=== PATIENT | female | born 1945 | race Caucasian/White ===

== ENCOUNTER 2017-04-16 19:09 | Inpatient (IN) | payer MEDICARE, OTHER ==
[2017-04-16] MEDS ORDERED: Aspirin Low Dose CHEW TAB* 81 MG PO ONE (19:26)
[2017-04-16] MEDS ORDERED: NS 0.9% 1000 ML* 1,000 ML IV ONE (19:26)
--- NOTE | 2017-04-16 19:55 | RAD ---
Indication: Chest pain and shortness of breath. Comparison: February 08, [address] and January 02, 2011 chest radiograph. Technique: Upright AP 1938 hours Report: Clear lungs and pleural spaces. Negative for pneumothorax. Unchanged cardiomegaly. Unremarkable central pulmonary vasculature and mediastinal contours. Unremarkable osseous structures and soft tissue contours. IMPRESSION: Cardiomegaly without evidence for pulmonary edema. No evidence for pneumonia.
[2017-04-16 20:51] LABS: Hematocrit 33 % (35-47); Hemoglobin 11.1 g/dl (12.0-16.0); Mean Corpuscular HGB Conc 33 g/dl (31-36); Mean Corpuscular Hemoglobin 29 pg (27-31); Mean Corpuscular Volume 87 fL (80-97); Mean Platelet Volume 9 um3 (7.4-10.4); Red Blood Count 3.85 10^6/ul (4.0-5.4); Red Cell Distribution Width 14 % (10.5-15); White Blood Count 7.8 10^3/ul (3.5-10.8)
--- NOTE | 2017-04-16 20:58 | ED ---
Renan Garcia Alok, scribed for Magen Escalona MD on 04/16/17 at 2021 . HPI Chest Pain - HPI Summary HPI Summary: 72F presents to the ED with chest tightness on and off since 2 days ago. Her CP is intermittent lasting 15-20 minutes at a time and radiates to the jaw and shoulders. This CP is accompanied by SOB both on exertion and at rest. Pt took an aspirin [employer] and was given NTG by EMS [facility]. Pt denies back pain. PMHX includes DM and arthritis. PSHx includes cholecystectomy. - History of Current Complaint Chief Complaint: EDChestPainROMI Time Seen by Provider: 04/16/17 19:35 Hx Obtained From: Patient Onset/Duration: Started Days Ago, Atraumatic, Still Present Timing: Intermittent, Lasting Minutes Initial Severity: Moderate Current Severity: Moderate Pain Intensity: 6 Pain Scale Used: 0-10 Numeric Chest Pain Radiates: Yes Chest Pain Radiates To:: Shoulder, Jaw Character: Tightness Aggravating Factor(s): Nothing Alleviating Factor(s): NTG 123 Associated Signs and Symptoms: Positive: Chest Pain, Shortness of Breath. Negative: Back Pain - Allergy/Home Medications Allergies/Adverse Reactions: Allergies Allergy/AdvReac Type Severity Reaction Status Date / Time Codeine Allergy Severe GI Upset Verified 04/16/17 19:37 Acetaminophen Allergy GI Upset Verified 04/16/17 19:37 [From Oxycodone W/Acetaminophen] Oxycodone Allergy GI Upset Verified 04/16/17 19:37 [From Oxycodone W/Acetaminophen] Prednisone Allergy See Comment Verified 04/16/17 19:37 PMH/Surg Hx/FS Hx/Imm Hx Endocrine/Hematology History: Reports: Hx Thyroid Disease History: Reports: Hx Renal Disease - HX OF RENAL STONES - Surgical History Surgery Procedure, Year, and Place: ARTHROSCOPIC KNEE SURG, HYSTERECTOMY, CHOLECYSTECTOMY, CATARACT SURGERY - Immunization History Date of Tetanus Vaccine: less than 10 years Date of Influenza Vaccine: none Infectious Disease History: No Infectious Disease History: Denies: Traveled Outside the [place] in Last 30 Days - Family History Known Family History: Positive: Cardiac Disease - Social History Occupation: Retired Alcohol Use: Rare Substance Use Type: Reports: None Smoking Status (MU): Never Smoked Tobacco Review of Systems Negative: Fever Positive: Chest Pain Positive: Shortness Of Breath Negative: Other - back pain All Other Systems Reviewed And Are Negative: Yes Physical Exam - Summary Physical Exam Summary: The patient is well-nourished in no acute distress and in no acute pain. The skin is warm and dry and skin color reflects adequate perfusion. HEENT: The head is normocephalic and atraumatic. The pupils are equal and reactive. The conjunctivae are clear and without drainage. Nares are patent and without drainage. Mouth reveals moist mucous membranes and the throat is without erythema and exudate. The external ears are intact. The ear canals are patent and without drainage. The tympanic membranes are intact. Neck is supple with full range of motion and non-tender. There are no carotid bruits. There is no neck vein distension. Respiratory: Positive reproducible chest pain. Lungs are clear to auscultation and breath sounds are symmetrical and equal. Cardiovascular: Hear is regular rate and rhythm. There is no murmur or rub auscultated. Right leg appears swollen compared to left. Pulses are symmetrical and equal. Abdomen: The abdomen is obese, soft and non-tender. There are normal bowel sounds heard in all four quadrants and there is no organomegaly palpated. Musculoskeletal: There is no back pain noted. Extremities are non-tender with full range of motion. There is good capillary refill. Right leg appears swollen compared to left. Neurological: Patient is alert and oriented to person, place and time. The patient has symmetrical motor strength in all four extremities. Cranial nerves are grossly intact. Deep tendon reflexes are symmetrical and equal in all four extremities. Psychiatric: The patient has an appropriate affect and does not exhibit any anxiety or depression. Triage Information Reviewed: Yes Vital Signs On Initial Exam: Initial Vitals Temp Pulse Resp BP Pulse Ox 97.7 F 82 19 162/68 95 04/16/17 19:23 04/16/17 19:23 04/16/17 19:23 04/16/17 19:23 04/16/17 19:23 Vital Signs Reviewed: Yes - Mesfin Coma Scale Coma Scale Total: 15 Diagnostics - Vital Signs Vital Signs Temp Pulse Resp BP Pulse Ox 04/16/17 19:30 97.7 F 78 21 159/73 96 04/16/17 19:23 97.7 F 82 19 162/68 95 - Laboratory Lab Results: Lab Results 04/16/17 Range/Units 20:44 WBC 7.8 (3.5-10.8) 10^3/ul RBC 3.85 L (4.0-5.4) 10^6/ul Hgb 11.1 L (12.0-16.0) g/dl Hct 33 L (35-47) % MCV 87 (80-97) fL MCH 29 (27-31) pg MCHC 33 (31-36) g/dl RDW 14 (10.5-15) % Plt Count 151 (150-450) 10^3/ul MPV 9 (7.4-10.4) um3 Neut % (Auto) 67.5 (38-83) % Lymph % (Auto) 16.2 L (25-47) % Baca % (Auto) 6.4 (1-9) % Eos % (Auto) 9.3 H (0-6) % Baso % (Auto) 0.6 (0-2) % Absolute Neuts (auto) 5.3 (1.5-7.7) 10^3/ul Absolute Lymphs (auto) 1.3 (1.0-4.8) 10^3/ul Absolute Monos (auto) 0.5 (0-0.8) 10^3/ul Absolute Eos (auto) 0.7 H (0-0.6) 10^3/ul Absolute Basos (auto) 0 (0-0.2) 10^3/ul Absolute Nucleated RBC 0 10^3/ul Nucleated RBC % 0 Result Diagrams: 04/16/17 20:44 Lab Statement: Any lab studies that have been ordered have been reviewed, and results considered in the medical decision making process. - Radiology CXR Xray Interpretation: Positive (See Comments) - IMPRESSION: Cardiomegaly without evidence for pulmonary edema. No evidence for pneumonia. Radiology Interpretation Completed By: Radiologist - EKG 1929 Cardiac Rate: NL - 78 bpm EKG Rhythm: Sinus Rhythm ST Segment: Non-Specific - changes EKG Interpretation: Poor R-wave progression 2028 Cardiac Rate: NL - 65 bpm EKG Rhythm: Sinus Rhythm EKG Interpretation: Poor R-waves progression. Left Docena deviation. No STEMI Chest Pain Course/Dx - Chest Pain Differential Diagnosis/HQI/PQRI: Acute PR, Chest Wall, GI Disease, Lower Respiratory Infection - Diagnoses Provider Diagnoses: Chest pain - Provider Notifications Discussed Care Of Patient With: Morgan Kingsley - Will admit pt to [facility] Time Discussed With Above Provider: 20:54 Discharge - Discharge Plan Condition: Stable Disposition: ADMITTED TO [facility] Referrals: Chantale Nino MD [Primary Care Provider] - The documentation as recorded by the Renan minor Alok accurately reflects the service I personally performed and the decisions made by me, Magen Escalona MD.
[2017-04-16 21:08] LABS: Albumin 3.5 g/dL (3.2-5.2); BUN/Creatinine Ratio 17.1 (8-20); Calcium 8.9 mg/dL (8.6-10.3); EGFR African American 47.7 (>60); EGFR Non-African American 37.1 (>60); Globulin 2.5 g/dL (2-4); Potassium 4.3 mmol/L (3.5-5.0); Total Bilirubin 0.4 mg/dL (0.2-1.0)
[2017-04-16] MEDS ORDERED: Acetaminophen TAB* 325 MG PO PRN (21:13)
[2017-04-16] MEDS ORDERED: Ondansetron INJ* 2 MG/ML VIAL IV PRN (21:13)
[2017-04-16] MEDS ORDERED: Dextrose 50% Syringe 50 ML* 25 GM/50 ML SYRINGE IV PUSH PRN (21:13)
[2017-04-16] MEDS: Heparin VIAL(*) 5000 UNITS/ML VIAL (FIVE THOUSAND) SUBCUT SCH (23:08)
[2017-04-17 03:22] LABS: Hematocrit 33 % (35-47); Hemoglobin 10.7 g/dl (12.0-16.0); Mean Corpuscular HGB Conc 33 g/dl (31-36); Mean Corpuscular Hemoglobin 29 pg (27-31); Mean Corpuscular Volume 87 fL (80-97); Mean Platelet Volume 8 um3 (7.4-10.4); Red Blood Count 3.73 10^6/ul (4.0-5.4); Red Cell Distribution Width 14 % (10.5-15)
[2017-04-17 03:36] LABS: BUN/Creatinine Ratio 16.9 (8-20); Calcium 8.7 mg/dL (8.6-10.3); EGFR African American 46.9 (>60); EGFR Non-African American 36.5 (>60); HDL Cholesterol 33.2 mg/dL
[2017-04-17] MEDS: Heparin VIAL(*) 5000 UNITS/ML VIAL (FIVE THOUSAND) SUBCUT SCH ×3 (05:36→21:53)
[2017-04-17] MEDS ORDERED: Levothyroxine TAB* 100 MCG TAB PO SCH (06:00)
[2017-04-17] MEDS ORDERED: Levothyroxine TAB* 75 MCG TAB PO SCH (06:00)
[2017-04-17] MEDS: Allopurinol TAB* 100 MG PO SCH (08:32)
[2017-04-17] MEDS: Lisinopril TAB* 10 MG PO SCH (08:32)
[2017-04-17] MEDS: Famotidine TAB* 20 MG PO SCH (08:32)
[2017-04-17] MEDS: Aspirin EC Low Dose* 81 MG TAB.EC PO SCH (08:32)
[2017-04-17] MEDS: Insulin LISPRO* 1 UNITS UNIT SUBCUT SCH ×3 (08:33→16:56)
--- NOTE | 2017-04-17 10:37 | PN ---
Subjective Date of Service: 04/17/17 Interval History: This is a 72 yo female with NIDDM, hypothyroidism, HTN, CKD and GERD who presented with c/o chest pressure. Patient has no known h/o CAD. She has been having escalating symptoms for the last several days to weeks. No changes to EKG or elevated troponin Patient reports that she continues to have intermittent symptoms with exertion and at rest. Mostly limited to upper chest, occasional radiation to jaw. No additional SOB. Objective Active Medications: Acetaminophen (Tylenol Tab*) 650 mg PO Q4H PRN PRN Reason: FEVER/PAIN Allopurinol (Zyloprim Tab*) 100 mg PO DAILY [facility] Last Admin: 04/17/17 08:32 Dose: 100 mg Aspirin (Aspirin Ec Low Dose*) 81 mg PO DAILY [facility] Last Admin: 04/17/17 08:32 Dose: 81 mg Dextrose (D50w Syringe 50 Ml*) 12.5 gm IV PUSH .FOR FS < 60 - SS PRN PRN Reason: FS < 60 Famotidine (Pepcid Tab*) 20 mg PO DAILY [facility] Last Admin: 04/17/17 08:32 Dose: 20 mg Heparin Sodium (Porcine) (Heparin Vial(*)) 5,000 units SUBCUT Q8HR [facility] Last Admin: 04/17/17 05:36 Dose: 5,000 units Insulin Human Lispro (Humalog*) 0 units SUBCUT AC [facility] PRN Reason: Protocol Last Admin: 04/17/17 08:33 Dose: 2 units Levothyroxine Sodium (Synthroid Tab*) 75 mcg PO 0600 [facility] Last Admin: 04/17/17 05:36 Dose: 75 mcg Levothyroxine Sodium (Synthroid Tab*) 100 mcg PO 0600 [facility] Last Admin: 04/17/17 05:35 Dose: 100 mcg Lisinopril (Prinivil Tab*) 20 mg PO DAILY [facility] Last Admin: 04/17/17 08:32 Dose: 20 mg Ondansetron HCl (Zofran Inj*) 4 mg IV Q6H PRN PRN Reason: NAUSEA Vital Signs: Temp Pulse Resp BP Pulse Ox 97.8 F 61 16 139/57 96 04/17/17 08:15 04/17/17 08:15 04/17/17 08:15 04/17/17 08:15 04/17/17 08:15 Oxygen Devices in Use Now: None Appearance: Well appearing elderly female in NAD Respiratory: Symmetrical Chest Expansion and Respiratory Effort, Clear to Auscultation Cardiovascular: NL Sounds; No Murmurs; No JVD, RRR Abdominal: NL Sounds; No Tenderness; No Distention Extremities: - - trace LE edema bilaterally Neurological: Alert and Oriented x 3 Result Diagrams: 04/17/17 03:14 04/17/17 03:14 Additional Lab and Data: Laboratory Tests 04/16/17 04/17/17 04/17/17 20:44 00:08 03:13 Troponin I 0.00 0.01 0.01 Diagnostic Imaging: EKG - NSR Assess/Plan/Problems-Billing Assessment: This is a 72 yo female with NIDDM, GERD, hypothyroidism, HTN, CKD who presented with c/o chest heaviness. - Patient Problems (1) Chest pain Comment: No evidence of ACS Multiple CVD risk factors Will plan to keep for stress testing Wednesday ASA and statin started, no BB as HR is average mid 60s (2) Diabetes Comment: NIDDM, managed with metformin as outpt HgbA1c 7.8% (3) Hypothyroidism Comment: Cont levothyroxine Check TSH/free T4 (4) HTN (hypertension) Comment: Normotensive Cont home antihypertensives (5) CKD (chronic kidney disease) Comment: Stage III Stable (6) Full code status (7) DVT prophylaxis Comment: SQ heparin Status and Disposition: Transition to inpatient status. Plan for stress testing Wednesday
[2017-04-17 12:35] LABS: TSH (Thyroid Stimulating Horm) 0.26 mcIU/mL (0.34-5.60)
[2017-04-17 12:42] LABS: Free T4 1.47 ng/dL (0.61-1.12)
--- NOTE | 2017-04-17 13:51 | HP ---
CC: Dr. Nino* HISTORY AND PHYSICAL: DATE OF ADMISSION: 04/16/17 PRIMARY CARE PROVIDER: Dr. Nino. ATTENDING PHYSICIAN WHILE IN THE HISTORY: Morgan Kingsley MD* (report is being dictated by Kai Blum NP). CHIEF COMPLAINT: Chest pain. HISTORY OF PRESENT ILLNESS: Ms. Linares is a 72-year-old female patient who carries a history of diabetes, GERD, hypothyroidism, hypertension, and arthritis. She comes in to the ER today stating that on Wednesday, she went to visit her family in [place], she had to sleep on the bed. She noticed she woke up in the middle of the night then into Wednesday, and started having palpitations and since then now she has been having chest heaviness off and on with different duration and frequency. However, she has noticed in the last 24 hours that frequency has increased and she describes it as a pressure in the left chest up into the jaw with associated nausea at times and it does come on with exertion and there is also sometimes associated shortness of breath. She was concerned because of the symptoms and frequency was increasing. She was concerned that may be this could be related to heart, so she came into the hospital today. There has been no reports of abdominal pain or any nausea or vomiting. No fevers, chills. No recent illnesses. She denied having any loss of consciousness. No seizures and there has been no abdominal pain. She came in to the ER and was evaluated. Because of her story and of her risk factors, we were asked to evaluate for admission. PAST MEDICAL HISTORY: Significant for: 1. Diabetes. 2. GERD. 3. Hypothyroidism. 4. Hypertension. 5. Arthritis. PAST SURGICAL HISTORY: 1. The patient had left knee arthroscopy. 2. Cardiac catheterization. HOME MEDICATIONS: According to the list that she provided to me include: 1. Zantac 300 mg p.o. daily. 2. Allopurinol 100 mg p.o. daily. 3. Glucophage 500 mg p.o. b.i.d. 4. Lisinopril/hydrochlorothiazide 1 tablet p.o. daily. 5. Synthroid 125 mcg p.o. daily. ALLERGIES TO MEDICATIONS: Include CODEINE, OXYCODONE, and PREDNISONE. FAMILY HISTORY: Both her mother and father had MIs. SOCIAL HISTORY: She is a former smoker. She does not drink alcohol. She lives alone. Surrogate decision maker is her son. REVIEW OF SYSTEMS: There is no documented fever. She denied having any significant weight change. There was no double vision. No ear discharge. There was no rhinorrhea, no sore throat, no thyroid enlargement. Denied having any chest pain. Currently denied having any abdominal pain. There was shortness of breath when having the chest pain but none now. She denied having any loss of consciousness. No seizures, no pruritus and no skin ulceration. Review of 14 systems completed, all others negative. PHYSICAL EXAMINATION GENERAL: At this time, Ms. Linares is a 72-year-old female patient. She does not appear to be in any acute distress. She is awake. She is alert. She is oriented x3. VITAL SIGNS: Blood pressure 133/66, pulse 71, respirations 20, O2 sat 95% and temperature 97.7. HEENT: Head is atraumatic and normocephalic. Eyes: EOMs are intact. Sclerae are anicteric, not pale. Throat: Oral mucosa appears to be moist. No oropharyngeal erythema. NECK: Supple. LUNGS: Clear to auscultation bilaterally. No wheezes, rales, or rhonchi. HEART: Sounds S1, S2. Regular rate and rhythm. No murmurs, rubs, or gallops. ABDOMEN: Soft, flat, nontender. Bowel sounds present. EXTREMITIES: Pulses were 2+ throughout. She is able to move all 4 extremities with 5/5 strength. NEUROLOGIC: The patient is awake, alert, and oriented x3. Events Director were equal. No gross focal deficits. SKIN: Grossly intact. DIAGNOSTIC STUDIES/LAB DATA: Labs today revealed WBC 7.8, RBC of 3.85, hemoglobin 11.1, hematocrit 33, and platelet count of 151. Sodium is 137, potassium 4.3, chloride of 106, bicarb 24, BUN 24, creatinine 1.40, glucose 151 , lactate 2.5, calcium 8.9. Total bili 0.4, AST 18, ALT 16. Troponin 0. BNP 20. Albumin normal. She did have an EKG obtained today, which revealed normal sinus rhythm, rate of 65. No ST elevations or T-wave inversions were noted. She had a chest x-ray obtained today as well, which revealed cardiomegaly without evidence of pulmonary edema. No evidence of pneumonia. Old medical records were reviewed. ASSESSMENT AND PLAN: Ms. Linares is a 72-year-old female patient coming in to the ER today with complaints of chest pain. She will be admitted under observation status for: 1. Chest pain. Her story is concerning for angina. She has been having intermittent chest pain and the frequency has been increasing along with duration at times and she also says the pain does come on with exertion and she has associated shortness of breath and it radiates into her jaw and she has significant risk factors. At this point, I am going to go ahead and cycle her troponins. If they remained flat and that is reassuring, however, I still think with her story, she needs a stress test sooner rather than later. So I do think that it is warranted to keep this patient until Wednesday to do a stress test. I am going to go ahead and continue her on an aspirin. If her troponins do elevate, then I would certainly recommend Cardiology input, heparin drip and block blockers. I am checking lipid panel, A1c in the morning. We will cycle the troponins, place her on telemetry and will continue to follow her. 2. Diabetes. She will be on lispro sliding scale. 3. Hypothyroidism. Continue Synthroid. 4. Hypertension. Continue lisinopril. 5. Gastroesophageal reflux disease. Continue PPI therapy. 6. Deep vein thrombosis prophylaxis. She will be placed on heparin subcu. 7. Code status. Full code. 8. Fluids, electrolytes, and nutrition. She can have a heart healthy diet. TIME SPENT: On the admission 60 minutes. Greater than half the time spent face -to- face with the patient obtaining my history and physical; other half of the time was spent going over the plan of care with the patient and implementing the plan of care. I did discuss the plan of care with my attending, Dr. Kingsley, he is in agreement. KAI BLUM, BENITEZ [id number]/CPS #: [id number] [email or web address]
[2017-04-17] MEDS: Atorvastatin* 40 MG TAB PO SCH (16:56)
[2017-04-18] MEDS: Levothyroxine TAB* 150 MCG TAB PO SCH (04:58)
[2017-04-18] MEDS: Heparin VIAL(*) 5000 UNITS/ML VIAL (FIVE THOUSAND) SUBCUT SCH ×3 (04:58→21:16)
[2017-04-18] MEDS: Lisinopril TAB* 10 MG PO SCH (08:33)
[2017-04-18] MEDS: Allopurinol TAB* 100 MG PO SCH (08:33)
[2017-04-18] MEDS: Aspirin EC Low Dose* 81 MG TAB.EC PO SCH (08:33)
[2017-04-18] MEDS: Insulin LISPRO* 1 UNITS UNIT SUBCUT SCH ×3 (08:33→17:13)
[2017-04-18] MEDS: Famotidine TAB* 20 MG PO SCH (08:33)
--- NOTE | 2017-04-18 14:19 | PN ---
Subjective Date of Service: 04/18/17 Interval History: Patient continues to have occasional complaints of CP that last several seconds to minutes. No assoc SOB, abd pain, n/v. Objective Active Medications: Acetaminophen (Tylenol Tab*) 650 mg PO Q4H PRN PRN Reason: FEVER/PAIN Allopurinol (Zyloprim Tab*) 100 mg PO DAILY [facility] Last Admin: 04/18/17 08:33 Dose: 100 mg Aspirin (Aspirin Ec Low Dose*) 81 mg PO DAILY [facility] Last Admin: 04/18/17 08:33 Dose: 81 mg Atorvastatin Calcium (Lipitor*) 40 mg PO 1700 [facility] Last Admin: 04/17/17 16:56 Dose: 40 mg Dextrose (D50w Syringe 50 Ml*) 12.5 gm IV PUSH .FOR FS < 60 - SS PRN PRN Reason: FS < 60 Famotidine (Pepcid Tab*) 20 mg PO DAILY [facility] Last Admin: 04/18/17 08:33 Dose: 20 mg Heparin Sodium (Porcine) (Heparin Vial(*)) 5,000 units SUBCUT Q8HR [facility] Last Admin: 04/18/17 12:55 Dose: 5,000 units Insulin Human Lispro (Humalog*) 0 units SUBCUT AC [facility] PRN Reason: Protocol Last Admin: 04/18/17 12:55 Dose: 6 units Levothyroxine Sodium (Synthroid Tab*) 150 mcg PO 0600 [facility] Last Admin: 04/18/17 04:58 Dose: 150 mcg Lisinopril (Prinivil Tab*) 20 mg PO DAILY [facility] Last Admin: 04/18/17 08:33 Dose: 20 mg Ondansetron HCl (Zofran Inj*) 4 mg IV Q6H PRN PRN Reason: NAUSEA Vital Signs: Temp Pulse Resp BP Pulse Ox 99.2 F 70 16 138/58 97 04/18/17 11:55 04/18/17 11:55 04/18/17 11:55 04/18/17 11:55 04/18/17 11:55 Oxygen Devices in Use Now: None Appearance: Well appearing in NAD Respiratory: Symmetrical Chest Expansion and Respiratory Effort, Clear to Auscultation Cardiovascular: NL Sounds; No Murmurs; No JVD, RRR Abdominal: NL Sounds; No Tenderness; No Distention Extremities: No Edema Skin: No Rash or Ulcers Neurological: Alert and Oriented x 3 Result Diagrams: 04/17/17 03:14 04/17/17 03:14 Additional Lab and Data: Laboratory Tests 04/16/17 04/17/17 04/17/17 20:44 00:08 03:13 Troponin I 0.00 0.01 0.01 Diagnostic Imaging: EKG - NSR Assess/Plan/Problems-Billing Assessment: This is a 72 yo female with NIDDM, GERD, hypothyroidism, HTN, CKD who presented with c/o chest heaviness. - Patient Problems (1) Chest pain Comment: No evidence of ACS Multiple CVD risk factors Will plan to keep for stress testing tomorrow ASA and statin started, no BB as HR is average mid 60s (2) Diabetes Comment: NIDDM, managed with metformin as outpt HgbA1c 7.8% (3) Hypothyroidism Comment: Cont levothyroxine Check TSH/free T4 (4) HTN (hypertension) Comment: Normotensive Cont home antihypertensives (5) CKD (chronic kidney disease) Comment: Stage III Stable (6) Full code status (7) DVT prophylaxis Comment: SQ heparin Status and Disposition: Inpatient. Waiting for stress test tomorrow
[2017-04-18] MEDS: Atorvastatin* 40 MG TAB PO SCH (17:13)
[2017-04-19] MEDS: Levothyroxine TAB* 150 MCG TAB PO SCH (05:56)
[2017-04-19] MEDS: Heparin VIAL(*) 5000 UNITS/ML VIAL (FIVE THOUSAND) SUBCUT SCH (05:57)
[2017-04-19] MEDS: Insulin LISPRO* 1 UNITS UNIT SUBCUT SCH ×2 (07:19→12:25)
--- NOTE | 2017-04-19 09:34 | RAD ---
HISTORY: Chest pain, shortness of breath, diabetes, hypertension, lipidemia, obesity, tobacco use, family history of heart disease, previous cardiac catheterization COMPARISONS: January 03, 2011 TECHNIQUE: A 1 day stress/rest myocardial perfusion study was performed, with pharmacologic stress. The stress portion was monitored by Dr. Maldonado. Gated SPECT imaging was performed, with CT-based attenuation correction DOSE: Stress: Technetium 99m tetrofosmin, 25.6 millicuries, injected at 8:22 AM on April 19, 2017 Rest: Technetium 99m tetrofosmin, 10.57 millicuries, injected at 6:20 AM on April 19, 2017 Pharmacologic agent: Lexiscan FINDINGS: CARDIAC MONITORING: No EKG criteria ischemia with stress EF: 68 % TID: 0.95 MOTION: Normal motion, with normal wall thickening. PERFUSION: There is a small focus of fixed hypoperfusion of the apex suggestive of previous infarct. There is a small to moderate region of reversible hypoperfusion of the distal anterior wall suggestive of ischemia. OTHER: None IMPRESSION: 1. SMALL TO MODERATE REVERSIBLE FOCUS OF THE DISTAL ANTERIOR WALL SUGGESTIVE OF ISCHEMIA. 2. SMALL FIXED DEFECT TOWARDS THE APEX SUGGESTIVE OF PREVIOUS INFARCT ASSESSMENT: LOW RISK. Based on imaging criteria from ACC/AHA 2002. Guideline Update for the Management of Patient's with Chronic Stable Angina, table 23. Noninvasive Risk Stratification.
--- NOTE | 2017-04-19 10:18 | PN ---
Subjective Date of Service: 04/19/17 Interval History: Patient reports no change in her symptoms overnight. She continues to have occasional chest discomfort. No abd pain, n/v. She completed stress test this am. Objective Active Medications: Acetaminophen (Tylenol Tab*) 650 mg PO Q4H PRN PRN Reason: FEVER/PAIN Allopurinol (Zyloprim Tab*) 100 mg PO DAILY [facility] Last Admin: 04/18/17 08:33 Dose: 100 mg Aspirin (Aspirin Ec Low Dose*) 81 mg PO DAILY [facility] Last Admin: 04/18/17 08:33 Dose: 81 mg Atorvastatin Calcium (Lipitor*) 40 mg PO 1700 [facility] Last Admin: 04/18/17 17:13 Dose: 40 mg Dextrose (D50w Syringe 50 Ml*) 12.5 gm IV PUSH .FOR FS < 60 - SS PRN PRN Reason: FS < 60 Famotidine (Pepcid Tab*) 20 mg PO DAILY [facility] Last Admin: 04/18/17 08:33 Dose: 20 mg Heparin Sodium (Porcine) (Heparin Vial(*)) 5,000 units SUBCUT Q8HR [facility] Last Admin: 04/19/17 05:57 Dose: 5,000 units Insulin Human Lispro (Humalog*) 0 units SUBCUT AC [facility] PRN Reason: Protocol Last Admin: 04/19/17 07:19 Dose: Not Given Levothyroxine Sodium (Synthroid Tab*) 150 mcg PO 0600 [facility] Last Admin: 04/19/17 05:56 Dose: 150 mcg Lisinopril (Prinivil Tab*) 20 mg PO DAILY [facility] Last Admin: 04/18/17 08:33 Dose: 20 mg Ondansetron HCl (Zofran Inj*) 4 mg IV Q6H PRN PRN Reason: NAUSEA Vital Signs: Temp Pulse Resp BP Pulse Ox 97.5 F 68 16 149/77 100 04/19/17 09:23 04/19/17 09:23 04/19/17 09:23 04/19/17 09:23 04/19/17 09:23 Oxygen Devices in Use Now: None Appearance: Well appearing, in NAD Respiratory: Symmetrical Chest Expansion and Respiratory Effort, Clear to Auscultation Cardiovascular: NL Sounds; No Murmurs; No JVD, RRR Abdominal: NL Sounds; No Tenderness; No Distention Extremities: No Edema Skin: No Rash or Ulcers Neurological: Alert and Oriented x 3 Result Diagrams: 04/17/17 03:14 04/17/17 03:14 Additional Lab and Data: Laboratory Tests 04/16/17 04/17/17 04/17/17 20:44 00:08 03:13 Troponin I 0.00 0.01 0.01 Diagnostic Imaging: EKG - NSR Nuc stress test - area of reversible ischemia along distal anterior wall and a fixed perfusion defect near the apex Assess/Plan/Problems-Billing Assessment: This is a 72 yo female with NIDDM, GERD, hypothyroidism, HTN, CKD who presented with c/o chest heaviness. - Patient Problems (1) Chest pain Comment: Stress test is abnl showing an area of reversible ischemia, requested cardiology consultation No evidence of ACS Multiple CVD risk factors Will plan to keep for stress testing tomorrow ASA and statin started, no BB as HR is average mid 60s (2) Diabetes Comment: NIDDM, managed with metformin as outpt HgbA1c 7.8% (3) Hypothyroidism Comment: Cont levothyroxine Mildly supressed TSH (4) HTN (hypertension) Comment: Normotensive Cont home antihypertensives (5) CKD (chronic kidney disease) Comment: Stage III Stable (6) Full code status (7) DVT prophylaxis Comment: SQ heparin Status and Disposition: Inpatient. Pending cardiology consultation
[2017-04-19] MEDS: Lisinopril TAB* 10 MG PO SCH (10:46)
[2017-04-19] MEDS: Aspirin EC Low Dose* 81 MG TAB.EC PO SCH (10:46)
[2017-04-19] MEDS: Famotidine TAB* 20 MG PO SCH (10:46)
[2017-04-19] MEDS: Allopurinol TAB* 100 MG PO SCH (10:46)
[2017-04-19 11:30] VITALS: BP 152/71
[2017-04-19] MEDS ORDERED: Regadenoson* 0.4 MG/5 ML SYRINGE ONE (12:39)
--- NOTE | 2017-04-19 13:27 | CONS ---
CC: Dr. Chantale Nino * CARDIOLOGY CONSULTATION: DATE OF CONSULT: 04/19/17 INDICATION FOR CONSULT: Chest pain. HISTORY OF PRESENT ILLNESS: The patient is a 72-year-old female with a history of diabetes, who is admitted to the hospital with chest pain. The patient states for the past week or so, she has been having intermittent chest pain that occurs at rest. The patient will say she was sitting, doing nothing and then suddenly gets the onset of chest pain, it is in the center of her chest. She describes it as a pressure in her chest. Occasionally, it radiates to her jaw. It will last just a few minutes and then resolve on its own. She says she does nothing to change anything. She denies any of these symptoms during exercise. It is not associated with meals. She denies any episodes of lightheadedness, dizziness, or syncope. The patient states that she had a cardiac catheterization 10 years ago, which was unremarkable. The patient did have a stress test in 2010, which showed a mild area of ischemia to the lateral wall. The patient was admitted to the hospital last Wednesday. Her EKG showed no ischemic EKG changes. Her troponin levels were normal. Over the weekend, she had 2 episodes of the same chest pain with no EKG changes. PAST MEDICAL HISTORY: Significant for diabetes, gastroesophageal reflux disease , hypothyroidism, hypertension, arthritis. PAST SURGICAL HISTORY: Knee arthroscopy, cardiac catheterization as described above. OUTPATIENT MEDICATIONS: 1. Zantac 300 mg a day. 2. Allopurinol 100 mg a day. 3. Glucophage 500 mg b.i.d. 4. Lisinopril/hydrochlorothiazide 1 tablet a day. 5. Synthroid 125 mcg a day. ALLERGIES: She is intolerant of oxycodone and codeine. FAMILY HISTORY: Both her parents had a history of coronary artery disease later in life. SOCIAL HISTORY: She is a previous smoker, she quit many years ago. She denies alcohol use. She lives alone. PHYSICAL EXAM: Height is 5 feet 6 inches, weight 220 pounds. Temperature is 98.3, heart rate is 65, blood pressure 127/57, respiratory rate is 20, oxygen saturation is 95% on room air. Sclerae anicteric. Oropharynx is pink without erythema. Carotids are 2+ without bruits. JVD is normal. Thyroid is normal. Cardiac Exam: S1, S2 without any murmurs, rubs, or gallops. Lungs: Clear to auscultation. Extremities: Show no edema. Abdomen: Obese, soft, nontender, nondistended with normoactive bowel sounds. She has 2+ pulses throughout. The patient is awake, alert, and oriented. She moves all 4 extremities equally. DIAGNOSTIC STUDIES/LAB DATA: CBC within normal limits. Chemistries are normal. Troponin levels are negative x3. Total cholesterol level 170, LDL of 63. TSH 0.26. The patient did undergo a chemical nuclear stress test today. I reviewed the images personally. There is a potentially very small area of ischemia to the distal lateral wall. It is not visible on the attenuated-correction images. She has normal LV function. Her TID is normal. IMPRESSION AND PLAN: This is a 72-year-old female with a history of diabetes, who is admitted to the hospital with atypical chest pain. The patient ruled out for a myocardial infarction. She had no EKG changes. Her chemical nuclear stress test suggests potentially a small area of ischemia to her lateral wall, which is unchanged from her report in 2012. Her attenuation-correction images are completely normal. In general, this stress test is a low-risk stress test. Given her lack of EKG changes and no elevation of troponin, I think the patient is at low risk for cardiac event. The patient will continue to be continued on an aspirin. She will be discharged with nitroglycerin tablets. I will see the patient in followup in 2 weeks. If she has a significant change in her cardiology symptoms, she is to give my office a call and we will proceed with further testing. This was discussed with QUINTIN Quiles. [id number]/[facility] #: [id number] TAVON
--- NOTE | 2017-04-20 05:08 | DS ---
CC: Dr. Nino; Dr. Kelly. * DISCHARGE SUMMARY: DATE OF ADMISSION: 04/16/17 DATE OF DISCHARGE: 04/19/17 PRIMARY CARE PROVIDER: Dr. Nino. CONSULTING TANK CAR INSPECTOR: Dr. Kelly. DISCHARGING PROVIDER: QUINTIN aBrron SUPERVISING PHYSICIAN: Janel Bobo MD * (DICTATED BY QUINTIN BARRON) PRIMARY DISCHARGE DIAGNOSIS: Chest pain - does not appear to be cardiac in origin. SECONDARY DISCHARGE DIAGNOSES: 1. Non-insulin dependent diabetes with a hemoglobin A1c of 7.8%. 2. Hypothyroidism with a mildly suppressed TSH - recommend repeat in 6 to 8 weeks. 3. Hypertension. 4. Chronic kidney disease. DISCHARGE MEDICATIONS: 1. Allopurinol 100 mg p.o. daily. 2. Aspirin 81 mg p.o. daily. 3. Atorvastatin 20 mg p.o. daily. 4. Levothyroxine 175 mcg p.o. daily. 5. Lisinopril/hydrochlorothiazide 20/12.5 1 tablet p.o. daily. 6. Metoprolol succinate 25 mg p.o. daily. 7. Nitroglycerin 0.4 mg sublingual q. 5 minutes as needed for chest pain. 8. Ranitidine 300 mg p.o. daily. 9. Metformin 500 mg p.o. twice daily. MEDICATIONS CHANGES: 1. Start aspirin. 2. Start Lipitor. 3. Start metoprolol succinate. 4. Start nitroglycerin. HOSPITAL IMAGIN. Chest x-ray shows evidence of cardiomegaly without evidence of pulmonary edema and no acute consolidation consistent with pneumonia. 2. Nuclear stress test is read as [id number] reversible focus of the distal anterior wall suggestive of ischemia and a small fixed defect towards the apex suggestive of a prior infarct. 3. EKG on multiple occasions with normal sinus rhythm without ischemic changes. HOSPITAL COURSE: This is a very pleasant 72-year-old female with a non-insulin dependent diabetes, hypothyroidism, hypertension, chronic kidney disease,who presented to the emergency department with complaints of chest pain. The patient's symptoms had started a couple of weeks prior and had been escalating. She had frequent episodes of chest heaviness with pressure and nausea, seem to be worse with exertion, but occasionally occurred at rest. Her initial evaluation in the emergency department demonstrated normal-appearing EKG, vitals within normal limits, and negative troponin. She was subsequently admitted for further evaluation including stress testing. The patient continued to have intermittent symptoms of chest pain and heaviness during her hospital stay at rest. These symptoms were fairly mild and would resolve spontaneously within seconds or minutes. Serial EKGs and troponins as well as continuous telemetry monitoring demonstrated no change. She underwent nuclear stress testing, which was read as showing an area of [id number] reversible ischemia and requested evaluation by Cardiology for this reason. Nuclear images were reviewed by Dr. Kelly and compared to prior stress test in 2010, which seemed to be similar. He states there may be a very small area of ischemia, her symptoms are less likely to be cardiac in origin, and he recommends medical treatment at this time. DISPOSITION AND FOLLOWUP PLAN: The patient is being discharged to home. Medication changes as outlined above. Recommend follow up with patient's primary care provider regarding her hospital stay and follow up with Dr. Kelly as an outpatient to evaluate response to medical therapy. QUINTIN BARRON [id number]/[facility] #: [id number] [place]
== END 2017-04-19 12:40 | disposition home or self-care (01) | DRG 313 ==
LOC: ED 19:09 → MEDTELE 21:11 → OBSVTOIN 04-17 10:25
PROVIDERS: ADMIT Internal Medicine; ATTEND Internal Medicine
PROC: 4A12XM4 Monitoring of Cardiac Stress, External Approach (ICD-10-PCS; principal; 2017-04-19)
DX: R07.89 Other chest pain (principal); E11.22 Type 2 diabetes mellitus with diabetic chronic kidney disease; N18.3 Chronic kidney disease, stage 3 (moderate); E03.9 Hypothyroidism, unspecified; I12.9 Hypertensive chronic kidney disease with stage 1 through stage 4 chronic kidney disease, or unspecified chronic kidney disease; Z79.82 Long term (current) use of aspirin; Z79.84 Long term (current) use of oral hypoglycemic drugs; K21.9 Gastro-esophageal reflux disease without esophagitis; M19.90 Unspecified osteoarthritis, unspecified site; Z88.5 Allergy status to narcotic agent; Z82.49 Family history of ischemic heart disease and other diseases of the circulatory system; Z87.891 Personal history of nicotine dependence; Z90.49 Acquired absence of other specified parts of digestive tract; Z88.8 Allergy status to other drugs, medicaments and biological substances; Z87.442 Personal history of urinary calculi; Z90.710 Acquired absence of both cervix and uterus; Z98.49 Cataract extraction status, unspecified eye
CPT/HCPCS: 36415; 71010; 78452; 80048; 80053; 80061; 83036; 83605; 83880; 84439; 84443; 84484; 85025; 93005; 93017; 94760; A9270-GY; A9502; G0378; J1644; J2785

== ENCOUNTER 2018-08-21 09:05 | Emergency (ER) | payer MEDICARE, OTHER ==
[2018-08-21] MEDS ORDERED: NS 0.9% 1000 ML* 1,000 ML IV ONE (10:09)
--- NOTE | 2018-08-21 10:49 | ED ---
Complex/Multi-Sys Presentation - HPI Summary HPI Summary: Pt is a 73 y/o female who presents to the ED c/o flank pain. She states she was recently diagnosed with a right-sided kidney stone, and she is now not able to handle the 07/27 pain. Pt has a history of kidney stones, and usually passes them on her own. She c/o nausea, but denies any vomiting, hematuria, dysuria, CP , SOB, or abdominal pain. Pt also has right knee pain, which she believes is gout, but she already has arthritis in both knees. - History Of Current Complaint Chief Complaint: EDFlankPain Time Seen by Provider: 08/21/18 10:42 Hx Obtained From: Patient Onset/Duration: Gradual Onset, Still Present Timing: Constant Severity Currently: Severe - 07/27 Location: Pain At: - Right flank, right knee Associated Signs And Symptoms: Positive: Nausea. Negative: SOB, Chest Pain, Vomiting, Abdominal Pain, Dysuria Related History: Other - Hx kidney stones, knee arthritis - Allergies/Home Medications Allergies/Adverse Reactions: Allergies Allergy/AdvReac Type Severity Reaction Status Date / Time codeine Allergy GI Upset Verified 08/21/18 09:14 oxycodone Allergy GI Upset Verified 08/21/18 09:14 prednisone Allergy See Comment Verified 08/21/18 09:14 PMH/Surg Hx/FS Hx/Imm Hx Endocrine/Hematology History: Reports: Hx Diabetes - Borderline, Hx Thyroid Disease Cardiovascular History: Reports: Hx Angina, Hx Hypercholesterolemia, Hx Hypertension Denies: Hx Coronary Artery Disease, Hx Myocardial Infarction, Hx Valvular Heart Disease Respiratory History: Denies: Hx Asthma, Hx Chronic Obstructive Pulmonary Disease (COPD) GI History: Reports: Hx Gastroesophageal Reflux Disease History: Reports: Hx Renal Disease - HX OF RENAL STONES Musculoskeletal History: Reports: Hx Gout Sensory History: Reports: Hx Contacts or Glasses Denies: Hx Hearing Aid Opthamlomology History: Reports: Hx Contacts or Glasses - Surgical History Surgery Procedure, Year, and Place: ARTHROSCOPIC KNEE SURG, HYSTERECTOMY, CHOLECYSTECTOMY, CATARACT SURGERY - Immunization History Date of Tetanus Vaccine: less than 10 years Date of Influenza Vaccine: none Infectious Disease History: No Infectious Disease History: Denies: Traveled Outside the [place] in Last 30 Days - Family History Known Family History: Positive: Cardiac Disease - Social History Alcohol Use: None Hx Substance Use: No Substance Use Type: Reports: None Hx Tobacco Use: No Smoking Status (MU): Never Smoked Tobacco Review of Systems Negative: Chest Pain Negative: Shortness Of Breath Positive: Nausea. Negative: Abdominal Pain, Vomiting Positive: flank pain - Right. Negative: dysuria, hematuria Positive: Arthralgia - Right knee pain All Other Systems Reviewed And Are Negative: Yes Physical Exam - Summary Physical Exam Summary: Appearance: Well appearing, no pain distress Skin: dry, reflects adequate perfusion, right knee warmth Head/face: normal Eyes: EOMI, DON ENT: mucous membranes moist Neck: supple, non-tender Respiratory: CTA, breath sounds present Cardiovascular: RRR, pulses symmetrical, no LE edema Abdomen: non-tender, soft, no CVA tenderness Bowel Sounds: present Musculoskeletal: strength/ROM intact, no muscular tenderness of back, diffuse R knee tenderness without effusion or swelling Neuro: normal, sensory motor intact, A&Ox3 Triage Information Reviewed: Yes Vital Signs On Initial Exam: Initial Vitals Temp Pulse Resp BP Pulse Ox 97.8 F 79 16 126/90 99 08/21/18 09:08 08/21/18 09:08 08/21/18 09:08 08/21/18 09:08 08/21/18 09:08 Vital Signs Reviewed: Yes Procedures - Procedure Summary Procedure Summary: Right knee arthrocentesis: 1 cc 1% lidocaine for skin. 40 mg of Kenalog. 18 gauge needle used for aspiration, unable to collect any fluid. Diagnostics - Vital Signs Vital Signs Temp Pulse Resp BP Pulse Ox 08/21/18 09:08 97.8 F 79 16 126/90 99 - Laboratory Result Diagrams: 08/21/18 10:59 08/21/18 10:59 Lab Statement: Any lab studies that have been ordered have been reviewed, and results considered in the medical decision making process. - Radiology Knee XR Radiology Interpretation Completed By: Radiologist - Degenerative changes of the right knee as described above. If the patient's symptoms persist, follow- up imaging is recommended. ED physician reviewed radiology report. - CT CT A/P CT Interpretation Completed By: Radiologist - 1. No renal calculi or signs of urinary obstruction. 2. Hepatosplenomegaly similar to the February 08, 2013 CT examination. 3. No acute inflammatory change of the gastrointestinal tract is identified. Incidentally noted is what appears to be a slow-growing lipoma in the wall of the ascending colon. 4. Additional chronic, degenerative and iatrogenic findings described in the body the report. ED physician reviewed radiology report. Complex Multi-Symp Course/Dx Course Of Treatment: Patient presents with right knee pain and right flank pain. History of arthritis and also gout. Knee pain did not respond to colchicine. An arthrocentesis was attempted however no fluid could be obtained. Intra-articular injection of Kenalog and lidocaine improved her symptoms. She will follow up with primary care physician. As for her flank pain there is no evidence for UTI, blood in the urine and a CT scan was negative to include any inflammatory pathology adjacent the abdomen. This has not been much of an issue since she's been here. - Diagnoses Differential Diagnoses/HQI/PQRI: Metabolic Abnormality, Urinary Tract Infection , Other - Gouty arthritis, septic arthritis, osteoarthritis, renal colic, lumbar strain Provider Diagnoses: Right flank pain, Arthritis of right knee, Chronic renal insufficiency Discharge - Sign-Out/Discharge Documenting (check all that apply): Patient Departure - Discharge - Discharge Plan Condition: Improved Disposition: HOME Prescriptions: Metaxalone TAB* [Skelaxin TAB*] 800 mg PO TID #12 tab traMADol TAB* [Ultram*] 50 mg PO Q8HR #10 tab MDD 3 Patient Education Materials: Osteoarthritis (ED), Flank Pain (ED) Referrals: Chantale Nino MD [Primary Care Provider] - Additional Instructions: Call for sooner appointment with your doctor or follow-up on Wednesday as scheduled. Tylenol for baseline pain. Ice to the joint may help. Bulmaro wrap may help. Return if worse, fever, redness, new symptoms or other concerns as discussed. - Billing Disposition and Condition Condition: IMPROVED Disposition: Home - Attestation Statements Document Initiated by Scribe: Yes Documenting Scribe: Regina Geiger Provider For Whom Inder is Documenting (Include Credential): Dimitry Daniel MD Scribe Attestation: Regina Garcia scribed for Dimitry Daniel MD on 08/21/18 at 1859. Scribe Documentation Reviewed: Yes Provider Attestation: The documentation as recorded by the Regina minor accurately reflects the service I personally performed and the decisions made by , Dimitry Daniel MD
[2018-08-21 11:01] LABS: Urine Appearance Clear; Urine Blood Negative (Negative); Urine Color Straw; Urine Ketones Negative (Negative); Urine Protein Negative (Negative); Urine Red Blood Cell Absent (Absent); Urine Specific Gravity 1.003 (1.010-1.030); Urine Urobilinogen Negative (Negative); Urine White Blood Cell Trace(0-5/hpf) (Absent)
[2018-08-21] MEDS ORDERED: Ondansetron INJ* 2 MG/ML VIAL IV ONE (11:04)
[2018-08-21] MEDS ORDERED: Ketorolac INJ* 30 MG/ML 1 ML VIAL IV PUSH ONE (11:04)
[2018-08-21 11:23] LABS: ABS Basophils 0.1 10^3/ul (0-0.2); ABS Eosinophils 0.5 10^3/ul (0-0.6); ABS Lymphocytes 0.5 10^3/ul (1.0-4.8); ABS Monocytes 0.4 10^3/ul (0-0.8); ABS Neutrophils 4.5 10^3/ul (1.5-7.7); ABS Nucleated RBC 0 10^3/ul; Eosinophil % 8.7 % (0-6); Hematocrit 34 % (35-47); Hemoglobin 11.3 g/dl (12.0-16.0); Lymphocyte % 8.6 % (25-47); Mean Corpuscular HGB Conc 33 g/dl (31-36); Mean Corpuscular Hemoglobin 27 pg (27-31); Mean Corpuscular Volume 82 fL (80-97); Mean Platelet Volume 8.5 fL (7.4-10.4); Nucleated Red Blood Cells % 0; Platelet Count 154 10^3/ul (150-450); Red Blood Count 4.13 10^6/ul (4.00-5.40); Red Cell Distribution Width 15 % (10.5-15); White Blood Count 6.1 10^3/ul (3.5-10.8)
[2018-08-21] MEDS ORDERED: Lidocaine 1% INJ* 10 MG/ML 30 ML SDV INJ ONE (11:28)
[2018-08-21] MEDS ORDERED: Triamcinolone Acetonide* 40 MG/ML 1 ML VIAL INTRAARTIC ONE (11:28)
[2018-08-21] MEDS ORDERED: Morphine VIAL* 4 MG/ML VIAL (1 ml vial) IV ONE (11:53)
[2018-08-21 12:04] LABS: EGFR Non-African American 40.3 (>60)
--- NOTE | 2018-08-21 12:15 | RAD ---
INDICATION: Worsening right knee pain over the past 3 days COMPARISON: None TECHNIQUE: 2 view radiograph of the right knee. FINDINGS: The visualized bones are well-corticated and properly aligned. There is loss of joint space height at the medial and lateral compartments more severe medially. Adjacent to the medial compartment is marginal osteophyte formation. There is density overlying the expected location of the menisci consistent with calcification. There is no radiographic evidence of joint effusion. There is no acute fracture, dislocation or other focal bony abnormality. IMPRESSION: Degenerative changes of the right knee as described above. If the patient's symptoms persist, follow-up imaging is recommended.
--- NOTE | 2018-08-21 12:46 | RAD ---
CLINICAL HISTORY: Right flank pain in a woman with a history of kidney stones. Relevant surgical history includes hysterectomy and cholecystectomy. COMPARISON: Most recent comparison CT of the abdomen and pelvis is dated February 08, 2013 TECHNIQUE: Noncontrast CT examination of the abdomen and pelvis from the lung bases through the initial tuberosities. FINDINGS: Unless otherwise specified comparisons below reference the February 08, 2013 CT examination VISUALIZED LUNG BASES: The lateral aspect of the right lower lobe there is a 7 mm pulmonary nodule as well as a smaller adjacent pleural-based nodule. Both of these are unchanged since the previous CT examination and are therefore of little clinical concern. Otherwise the visualized lung bases are grossly clear. There is no pleural effusion. ABDOMEN AND PELVIS: Evaluation of the solid organs and vasculature is limited without intravenous contrast. In the right lobe of the liver there is a fluid density cyst measuring 1 cm (axial image 61) unchanged from the previous CT examination. The liver is otherwise homogenous in attenuation without service irregularity or evidence of gross intrahepatic biliary duct dilatation. The liver is mildly enlarged measuring 22 cm in greatest cephalocaudal dimension similar to the previous CT examination. The homogenously attenuating spleen measures 17.3 cm in greatest cephalocaudal dimension. The pancreas and right adrenal gland are grossly normal in appearance. At the left adrenal gland there is a 1.5 cm low-attenuation nodule unchanged from the previous CT examination. The gallbladder is surgically absent. There are no renal calculi identified bilaterally. The kidneys are normal in appearance without focal mass, calcification or signs of hydronephrosis. Evaluation of the gastrointestinal tract is limited without oral contrast. The small and large bowel are not distended.The patient's normal appendix is identified in the right lower quadrant measuring 6 mm in diameter (coronal image 49) without definite periappendiceal inflammatory change. Along the lateral wall of the ascending colon there is a fat density well circumscribed 1.5 cm nodule (axial image 87 and coronal image 36) that appears to have been present on the previous CT examination measuring only 1 cm. More distally the gas and stool-filled colon does not exhibit any signs of obstruction or inflammatory change.. There is no gross retroperitoneal or mesenteric lymphadenopathy. The uterus is surgically absent The moderately calcified abdominal aorta and iliac arteries are normal in course and diameter. Degenerative changes include multilevel loss of intervertebral disc height involving the lower thoracic and lumbar spine.There are no sinister bone lesions. IMPRESSION: 1. No renal calculi or signs of urinary obstruction. 2. Hepatosplenomegaly similar to the February 08, 2013 CT examination. 3. No acute inflammatory change of the gastrointestinal tract is identified. Incidentally noted is what appears to be a slow-growing lipoma in the wall of the ascending colon. 4. Additional chronic, degenerative and iatrogenic findings described in the body the report.
[2018-08-21 13:33] VITALS: BP 156/76
== END 2018-08-21 13:32 | disposition home or self-care (01) ==
LOC: ED 09:05
DX: M17.11 Unilateral primary osteoarthritis, right knee (principal); N18.9 Chronic kidney disease, unspecified; R10.9 Unspecified abdominal pain; Z87.442 Personal history of urinary calculi; K21.9 Gastro-esophageal reflux disease without esophagitis; R73.03 Prediabetes; E78.00 Pure hypercholesterolemia, unspecified; I10 Essential (primary) hypertension
CPT/HCPCS: 36415; 74176; 80048; 81003; 81015; 85025; 86140; 87077; 87086; 87186; 96361; 96374; 96375; 99282; J1885; J2270; J2405; J3301

== ENCOUNTER 2020-10-15 07:20 | Observation (INO) ==
[2020-10-15] MEDS ORDERED: NS 0.9% 1000 ml BAG 1,000 ML IV ONE ×3 (07:52→09:30)
[2020-10-15 08:31] LABS: ABS Eosinophils 0.1 10^3/ul (0-0.6); ABS Lymphocytes 0.7 10^3/ul (1.0-4.8); ABS Monocytes 0.5 10^3/ul (0-0.8); ABS Neutrophils 5.2 10^3/ul (1.5-7.7); Eosinophil % 0.8 %; Hematocrit 32 % (35-47); Hemoglobin 10.5 g/dL (12.0-16.0); Lymphocyte % 11.3 %; Mean Corpuscular HGB Conc 33 g/dL (31-36); Mean Corpuscular Hemoglobin 27 pg (27-31); Mean Corpuscular Volume 81 fL (80-97); Mean Platelet Volume 8.6 fL (7.4-10.4); Platelet Count 178 10^3/uL (150-450); Red Blood Count 3.94 10^6 /uL (3.70-4.87); Red Cell Distribution Width 16 % (10-15); White Blood Count 6.6 10^3/uL (3.5-10.8)
[2020-10-15 08:38] LABS: ALT 19 U/L (7-52); AST 47 U/L (13-39); Albumin 3.8 g/dL (3.2-5.2); Albumin/Globulin Ratio 1.4 (1-3); Alkaline Phosphatase 93 U/L (34-104); Anion Gap 10 mmol/L (2-11); BUN/Creatinine Ratio 17.4 (8-20); Blood Urea Nitrogen 32 mg/dL (6-24); CO2 Carbon Dioxide 26 mmol/L (22-32); Calcium 8.9 mg/dL (8.6-10.3); Chloride 103 mmol/L (101-111); EGFR African American 32.4 (>60); EGFR Non-African American 26.8 (>60); Globulin 2.7 g/dL (2-4); Glucose 227 mg/dL (70-100); Magnesium 1.3 mg/dL (1.9-2.7); Potassium 3.5 mmol/L (3.5-5.0); Sodium 139 mmol/L (135-145); Total Protein 6.5 g/dL (6.4-8.9)
[2020-10-15 08:56] LABS: Troponin I 0.04 ng/mL (<0.03)
[2020-10-15 08:57] LABS: Creatine Kinase 2200 U/L (10-223)
[2020-10-15] MEDS ORDERED: Magnesium Sulf 4 GM/100 ML IV 4,000 MG/100 ML BAG IVPB ONE (09:27)
[2020-10-15 12:12] LABS: Urine Appearance Cloudy; Urine Bilirubin Negative (Negative); Urine Blood 2+ (Negative); Urine Color Yellow; Urine Glucose Negative (Negative); Urine Ketones Negative (Negative); Urine Nitrite Positive (Negative); Urine Protein 2+(100 mg/dL) (Negative); Urine Specific Gravity 1.018 (1.010-1.030); Urine Urobilinogen Negative (Negative)
[2020-10-15 12:19] LABS: Troponin I 0.04 ng/mL (<0.03)
[2020-10-15 12:27] LABS: Urine Bacteria 3+ (Absent); Urine Red Blood Cell Trace(0-2/hpf) (Absent); Urine Squamous Epithelial Cell Present (Absent); Urine White Blood Cell 3+(>20/hpf) (Absent)
[2020-10-15 13:14] LABS: C Reactive Protein 27.64 mg/L (<8.01)
[2020-10-15] MEDS: cefTRIAXone 1 gm/50 mL NS BAG 1 GM/50 ML BAG IVPB SCH (13:40)
[2020-10-15] MEDS ORDERED: Dextrose 50% Syringe 50 ml 25 GM/50 ML SYRINGE IV PUSH PRN (13:42)
[2020-10-15] MEDS ORDERED: NS 0.9% w/ 20 Meq KCL 1000 ml 1,000 ML IV SCH (14:00)
[2020-10-15 15:50] LABS: Troponin I 0.04 ng/mL (<0.03)
[2020-10-15] MEDS: Heparin 5000 UNITS/ML 1 mL VIAL SUBCUT SCH ×2 (16:04→22:04)
[2020-10-15 19:12] LABS: Troponin I 0.04 ng/mL (<0.03)
[2020-10-16 05:31] LABS: BUN/Creatinine Ratio 16.4 (8-20); Calcium 8.4 mg/dL (8.6-10.3); EGFR African American 42.4 (>60); Magnesium 1.9 mg/dL (1.9-2.7); Potassium 3.9 mmol/L (3.5-5.0)
[2020-10-16] MEDS: Heparin 5000 UNITS/ML 1 mL VIAL SUBCUT SCH ×3 (05:59→21:00)
[2020-10-16] MEDS ORDERED: NS 0.9% 1000 ml BAG 1,000 ML IV ONE (11:18)
[2020-10-16] MEDS ORDERED: NS 0.9% 1000 ml BAG 1,000 ML IV SCH ×2 (11:30→13:15)
[2020-10-16] MEDS: cefTRIAXone 1 gm/50 mL NS BAG 1 GM/50 ML BAG IVPB SCH (13:52)
[2020-10-17 07:14] LABS: BUN/Creatinine Ratio 12.9 (8-20); Calcium 8.4 mg/dL (8.6-10.3); EGFR African American 44.5 (>60); EGFR Non-African American 36.8 (>60); Potassium 3.9 mmol/L (3.5-5.0)
[2020-10-17] MEDS: Heparin 5000 UNITS/ML 1 mL VIAL SUBCUT SCH ×2 (07:28→13:15)
[2020-10-17] MEDS ORDERED: NS 0.9% 500 ml BAG 500 ML IV ONE ×2 (07:50→08:05)
[2020-10-17] MEDS: cefTRIAXone 1 gm/50 mL NS BAG 1 GM/50 ML BAG IVPB SCH (12:31)
[2020-10-17 14:13] VITALS: BP 160/68
== END 2020-10-17 14:30 | disposition home or self-care (01) ==
LOC: ED 07:20 → MED 07:20 → MEDTELE 12:48
PROVIDERS: ADMIT Internal Medicine; ATTEND Internal Medicine

== ENCOUNTER 2020-12-03 23:48 | Observation (INO) ==
[2020-12-03] MEDS ORDERED: diPHENhydraMINE IV 50 MG/ML 1 ml VIAL (BENADRYL) IV ONE (23:52)
[2020-12-03] MEDS ORDERED: NS 0.9% 1000 ml BAG 2,000 ML IV ONE (23:52)
[2020-12-03] MEDS ORDERED: Prochlorperazine 5 mg/ml 2 ml VIAL (10 mg) IV ONE (23:52)
[2020-12-04] MEDS ORDERED: Lorazepam PYXIS KEY PRN (00:33)
[2020-12-04] MEDS ORDERED: LORazepam 2 mg VIAL 1 ml IV PUSH ONE (00:33)
[2020-12-04] MEDS ORDERED: Morphine 4 MG/ML VIAL (1 ml) IV ONE (02:30)
[2020-12-04 03:31] LABS: ABS Basophils 0.1 10^3/ul (0-0.2); ABS Eosinophils 0.1 10^3/ul (0-0.6); ABS Lymphocytes 0.6 10^3/ul (1.0-4.8); ABS Monocytes 0.2 10^3/ul (0-0.8); ABS Neutrophils 9.1 10^3/ul (1.5-7.7); Eosinophil % 1.4 %; Hematocrit 35 % (35-47); Hemoglobin 11.4 g/dL (12.0-16.0); Lymphocyte % 6.1 %; Mean Corpuscular HGB Conc 32 g/dL (31-36); Mean Corpuscular Hemoglobin 26 pg (27-31); Mean Corpuscular Volume 81 fL (80-97); Mean Platelet Volume 9.7 fL (7.4-10.4); Platelet Count 210 10^3/uL (150-450); Red Blood Count 4.36 10^6 /uL (3.70-4.87); Red Cell Distribution Width 16 % (10-15); White Blood Count 10.1 10^3/uL (3.5-10.8)
[2020-12-04 03:52] LABS: Albumin 4.2 g/dL (3.2-5.2); Albumin/Globulin Ratio 1.5 (1-3); BUN/Creatinine Ratio 9.9 (8-20); C Reactive Protein 13.65 mg/L (<8.01); Calcium 8.8 mg/dL (8.6-10.3); EGFR Non-African American 39.7 (>60); Globulin 2.8 g/dL (2-4); Total Bilirubin 0.6 mg/dL (0.2-1.0)
[2020-12-04 04:00] LABS: Urine Appearance Clear; Urine Bilirubin Negative (Negative); Urine Blood 1+ (Negative); Urine Color Yellow; Urine Glucose Negative (Negative); Urine Ketones Trace (Negative); Urine Nitrite Negative (Negative); Urine Protein 3+(>=500 mg/dL) (Negative); Urine Specific Gravity 1.012 (1.010-1.030); Urine Urobilinogen Negative (Negative)
[2020-12-04 04:03] LABS: Urine Bacteria Absent (Absent); Urine Red Blood Cell Trace(0-2/hpf) (Absent); Urine Squamous Epithelial Cell Present (Absent); Urine White Blood Cell Trace(0-5/hpf) (Absent)
[2020-12-04 04:07] LABS: TSH Ultra Thyroid Stim Horm 2.02 mcIU/mL (0.34-5.60)
[2020-12-04] MEDS ORDERED: Acetaminophen IV 1 GM/100ML 100 ML IVPB ONE (05:00)
[2020-12-04] MEDS ORDERED: Enoxaparin 40 MG/0.4 ML SYR SUBCUT SCH (09:00)
[2020-12-04] MEDS ORDERED: methylPREDNISolone 125 mg 2 ML VIAL IV ONE (12:52)
[2020-12-04 13:29] LABS: Magnesium 1.1 mg/dL (1.9-2.7); Phosphorus 3.3 mg/dL (2.5-5.0)
[2020-12-04] MEDS: Enoxaparin 40 MG/0.4 ML SYR SUBCUT SCH (20:29)
[2020-12-04] MEDS ORDERED: Dextrose 50% Syringe 50 ml 25 GM/50 ML SYRINGE IV PUSH PRN (22:04)
[2020-12-05] MEDS ORDERED: Magnesium Sulfate IV 3 GM in NS 0.9% 100 ml BAG 100 ML IVPB ONE (08:30)
[2020-12-05] MEDS ORDERED: cefTRIAXone 1 gm/50 mL NS BAG 1 GM/50 ML BAG IVPB SCH (11:28)
[2020-12-05] MEDS ORDERED: Cyanocobalamin INJ 1,000 MCG/ML VIAL 1 ML VIAL IM ONE (17:51)
[2020-12-05] MEDS: Enoxaparin 40 MG/0.4 ML SYR SUBCUT SCH (21:10)
[2020-12-06] MEDS ORDERED: Magnesium Sulfate 2 gm BAG 2 GM/50 ML BAG IVPB ONE (08:16)
[2020-12-06 12:19] VITALS: BP 133/67
== END 2020-12-06 13:45 | disposition home or self-care (01) ==
LOC: MEDTELE 23:48 → ED 23:48 → MEDTELE 12-04 08:41
PROVIDERS: ADMIT Internal Medicine; ATTEND Internal Medicine